=== PATIENT | female | born 1990 ===

== ENCOUNTER 2023-03-23 05:00 | Inpatient (IN) | payer OTHER ==
[2023-03-23] VITALS (31 sets, daily range): BP systolic 96–129; BP diastolic 53–84; PULSE 62–121; TEMP 98–98.1
[~2023-03-23] VITALS: Ht 162.6 cm; Wt 85.9 kg
--- NOTE | 2023-03-23 05:10 | NUR ---
PT AMBULATED TO LR4 WITH SPOUSE. PT TO THE BATHROOM AND CHANGED INTO A CLEAN GOWN. PLACED ON EFM. THE PATIENT STATES THAT SHE BELIEVED SHE SROM'D AROUND 0345. AMNIOSWAB WAS INCONCLUSIVE, SVE AT THIS TIME IS /-1. THE PATIENT STATES CONTRACTIONS HAVE BEEN 5 MINUTES APART. HEART TONES ARE CATEGORY 1 TRACING, AND CONTRACTIONS ARE TRACING 3-5 MINUTES APART. PLAN OF CARE DISCUSSED WITH PATIENT. THE PATIENT AND SPOUSE VERBALIZE UNDERSTANDING OF PLAN.
[2023-03-23] MEDS ORDERED: PNV-SELECT1 TAB PO (05:32)
--- NOTE | 2023-03-23 05:45 | NUR ---
ROM+ SENT FOR CLARIFICATION ON SROM. RESULTS RETURNED POSITIVE. NOTIFIED PHYSICIAN, SEE PHYSICIAN NOTIFIACTION. 0605: ADMISSION BEGAN, PT IS GBS+, ORDERS TO BEGIN GBS+ PROTOCOL. NO OTHER CONCERNS REGARDING THE PATIENT AT THIS TIME.
--- NOTE | 2023-03-23 06:35 | NUR ---
0635IV STARTED AT THIS TIME PER MELISSA CORNEJO. LABS DRAWN. 0642IVF STARTED AT THIS TIME. [id number] DOSE OF PENICILLIN G STARTED AT THIS TIME.
--- NOTE | 2023-03-23 06:40 | NUR ---
REPORT GIVEN TO CHANTAL PINK. TRANSFER OF CARE AT THIS TIME.
--- NOTE | 2023-03-23 07:12 | NUR ---
SVE AT THIS TIME PER THIS RN. /-1. PT TOLERATED WELL. PT VITAL SIGNS STABLE. EFM TRACING CAT I.
[2023-03-23 07:29] LABS: BASO % 0.2 % (0.0-2.0); EOS # 0.1 K/mm3 (0.0-0.7); EOS % 0.5 % (0.0-4.0); GRAN # 6.8 K/mm3 (1.4-6.5); GRAN % 73.4 % (42.2-75.2); HEMOGLOBIN 12.1 g/dl (12.5-16.0); LYMPH # 1.9 K/mm3 (1.2-3.4); LYMPH % 20.3 % (20.0-51.0); MEAN CELL VOLUME 83 fl (80.0-100.0); MEAN CORPUSCULAR HEMOGLOBIN 28 pg (27-31); MEAN CORPUSCULAR HGB CONC 33 g/dl (33.0-37.0); MEAN PLATELET VOLUME 9.4 fl (7.4-10.4); MONO # 0.5 K/mm3 (0.1-0.6); MONO % 5.3 % (1.7-9.3); PLATELET COUNT 201 K/mm3 (130-400); RED BLOOD COUNT 4.39 M/mm3 (4.10-5.30); REDCELL DISTRIBUTION WIDTH-CV 14.1 % (11.5-14.5)
[2023-03-23 07:30] LABS: HEMATOCRIT 36.6 % (37.0-47.0)
--- NOTE | 2023-03-23 08:22 | NUR ---
SVE AT THIS TIME PER THIS RN WITH A SECOND CHECK BY REJI CORNEJO. /-2. PT TOLERATED WELL. PT VITAL SIGNS STABLE. EFM TRACING CAT I.
--- NOTE | 2023-03-23 09:02 | NUR ---
SVE AT THIS TIME PER THIS RN. 8-/-1. PT TOLERATED WELL. PT VITAL SIGNS STABLE. EFM TRACING CAT I.
--- NOTE | 2023-03-23 09:19 | NUR ---
0906LOLIONEL EVANGELISTA NOTIFIED OF PT REQUEST FOR EPIDURAL. IVF BOLUS STARTED. 0912LOUANAnitha EVANGELISTA ON UNIT. PT UP TO SITTING ON SIDE OF BED. PULSE OX ALREADY IN PLACE. PT VITAL SIGNS STABLE. EFM TRACING CAT I. 0914LOUANN TEST ENGINE EVALUATOR AT BEDSIDE. DISCUSSES POC WITH PT. PT VERBALIZES AGREEMENT. 0919TEST DOSE ADMINISTERED AT THIS TIME PER SHERLYN EVANGELISTA. 0920LOLIONEL EVANGELISTA ADMINISTERED BOLUS OF MEDICINE AT THIS TIME INSTEAD OF HOOKING UP PT TO EPIDURAL PUMP SINCE PT IS DILATED TO 9 CM. 0925PT RETURNED TO LAYING IN BED. PT POSITIONED WEDGE LEFT. PT COMFORTABLE IN BED. PT VITAL SIGNS STABLE. EFM TRACING CAT I. 0942PT COMPLAINS OF PAIN IN HER LEFT HIP. SHERLYN EVANGELISTA NOTIFIED. 0945LOLIONEL EVANGELISTA ADMINISTERED BOLUS DOSE AT THIS TIME. 0947PT COMFORTABLE. PT VITAL SIGNS STABLE. EFM TRACING CAT I.
--- NOTE | 2023-03-23 12:43 | NUR ---
0952SVE AT THIS TIME BY JOESPH CORNEJO WITH SECOND CHECK BY REJI CORNEJO. 10/100/0. WITH A BULGING BAG OF WATER. 1000INTERMITTENT DECELS NOTED. 1008PT REPOSITIONED TO LEFT LATERAL. DECELS RESOLVED. 1011LOW BLOOD PRESSURE NOTED. 101/64. EPHEDRINE DOSE 1 GIVEN AT THIS TIME. 1021THIRD BAG OF IVF STARTED. SECOND DOSE OF PENICILLIN G STARTED AT THIS TIME. 1027DR ROLES AT BEDSIDE. DISCUSSES POC WITH PT. PT VERBALIZES UNDERSTANDING. DR ROLES AROM OF FOREBAG AT THIS TIME. MODERATE AMOUNT OF CLEAR FLUID NOTED. PT TOLERATED WELL. 1040INTERMITTENT DECELS NOTED. 1045PT REPOSITIONED TO RIGHT LATERAL. DECELS RESOLVED. 1050LOW BLOOD PRESSURE NOTED. 101/60. SECOND DOSE OF EPHEDRINE GIVEN. 1054BLOOD PRESSURE RESOLVED. 1110STRAIGHT CATH AT THIS TIME PER THIS RN. 1111 LOW BLOOD PRESSURE NOTED. 94/55. 1112THIRD DOSE OF EPHEDRINE GIVEN. 1117BLOOD PRESSURE RESOLVED. 1120THIS RN BEGINS PUSHING WITH PT AT THIS TIME. GOOD MATERNAL EFFORT. ROOM AND SUPPLIES SET UP FOR DELIVERY. NURSERY NURSE AND CHARGE NURSE NOTIFIED THAT WE BEGAN PUSHING. 1123DR ROLES AT BEDSIDE TO ASSESS MATERNAL PUSHING. 1128DR ROLES LEAVES BEDSIDE AT THIS TIME. ROLES INSTRUCTS TO CONINUE PUSHING WITH PT. 1152LOW BLOOD PRESSURE NOTED. 1155FOURTH DOSE OF EPHEDRINE GIVEN. 1158BLOOD PRESSURE RESOLVED. 1235DR ROLES AT BEDSIDE FOR DELIVERY. ROOM AND PT SET UP FOR IMPENDING DELIVERY. NURSERY NURSE AND CHARGE NURSE AT BEDSIDE. 1243SVD OF VIABLE FEMALE AT THIS TIME PER DR ROLES. INFANT PLACED ON MATERNAL ABDOMEN. CARE ASSUMED BY NURSERY. 1246SVD OF PLACENTA PER DR ROLES. SECOND DEGREE PERINEAL LACERATION NOTED. REPAIR STARTED PER DR ROLES. FUNDUS FIRM AT U. LOCHIA WNL. PT VITAL SIGNS STABLE. 1252REPAIR FINISHED AT THIS TIME PER DR ROLES. FUNDUS FIRM AT U. LOCHIA WNL. PT VITAL SIGNS STABLE. 1300BED AND ROOM PUT BACK TOGETHER. PT COMFORTABLE IN BED. PERICARE PERFORMED. CHUX PAD CHANGED. ICE PACK PLACED ON PERINEUM. FUNDUS FIRM AT U. LOCHIA WNL. PT VITAL SIGNS STABLE.
[2023-03-24 04:00] VITALS: BP 125/55; PULSE 84; TEMP 98.1
[2023-03-24 09:15] VITALS: BP 108/70; PULSE 79
[2023-03-24] MEDS ORDERED: IBU800 M1 PO (09:50)
== END 2023-03-24 15:15 | disposition home or self-care (01) | DRG 807 ==
LOC: LDRO 05:00 → LDR 06:07 → OB 15:00
PROVIDERS: Obstetrics & Gynecology; ADMIT Obstetrics & Gynecology
PROC: 10E0XZZ Delivery of Products of Conception, External Approach (ICD-10-PCS; principal; 2023-03-23)
PROC: 0KQM0ZZ Repair Perineum Muscle, Open Approach (ICD-10-PCS; 2023-03-23)
DX: O99.824 Streptococcus B carrier state complicating childbirth (principal); Z37.0 Single live birth; Z3A.38 38 weeks gestation of pregnancy; O70.1 Second degree perineal laceration during delivery
CPT/HCPCS: J2540; J2590; J2795; J7120